=== PATIENT | male | born 1975 | race Caucasian/White ===

== ENCOUNTER 2023-05-09 20:10 | Inpatient (IN) | payer SELFPAY ==
[~2023-05-09] VITALS: Ht 167.6 cm; Wt 115.7 kg
[2023-05-09 20:20] VITALS: BP_SYST 186; BP_SYST 200; BP_DIAS 100; BP_DIAS 90; PULSE 78; RESP 17; TEMP 98.1; O2SAT 96
[2023-05-09] MEDS ORDERED: NACL 0.9% 1,000 ML IV ONE (20:55)
[2023-05-09 21:10] LABS: BASOPHILS # (AUTO) 0.1 K/uL (0.00-0.22); BASOPHILS % (AUTO) 1.1 % (0.0-2.0); EOSINOPHILS # (AUTO) 0.2 K/uL (0-0.4); HEMATOCRIT 43.8 % (36-52); HEMOGLOBIN 15.2 g/dL (12.0-18.0); LYMPHOCYTES # (AUTO) 3.1 K/uL (2.0-11.5); LYMPHOCYTES % (AUTO) 31.7 % (20.5-51.1); MEAN CORPUSCULAR HEMOGLOBIN 34 pg (27-31); MEAN CORPUSCULAR HGB CONC 35 g/dL (33-37); MEAN CORPUSCULAR VOLUME 96.9 fL (80-94); MONOCYTES # (AUTO) 0.8 K/uL (0.8-1.0); MONOCYTES % (AUTO) 7.8 % (1.7-9.3); NEUTROPHILS # (AUTO) 5.5 K/uL (1.8-7.7); NEUTROPHILS % (AUTO) 57.4 % (42.2-75.2); PLATELET COUNT (AUTO) 154 K/uL (140-450); RED BLOOD CELL COUNT(AUTO) 4.52 MIL/uL (4.20-6.10); WHITE BLOOD COUNT (AUTO) 9.7 K/uL (4.8-10.8)
[2023-05-09 21:31] LABS: ALANINE AMINOTRANSFERASE 61 U/L (12-78); ALBUMIN 3.8 g/dL (3.4-5.0); ALKALINE PHOSPHATASE 108 U/L (50-136); ANION GAP 9.7 (8-16); ASPARTATE AMINOTRANSFERASE 59 U/L (15-37); CALCIUM 8.5 mg/dL (8.5-10.1); CARBON DIOXIDE 31.6 mmol/L (21-32); CHLORIDE 101 mmol/L (98-107); CREATININE 0.9 mg/dL (0.6-1.3); FLU A ANTIGEN negative (NEGATIVE); FLU B ANTIGEN negative (NEGATIVE); GFR ARICAN-AMERICAN 116 mL/min (>90); GFR NON ARICAN-AMERICAN 96 mL/min (>90); GLUCOSE 104 mg/dL (74-106); LIPASE 28 U/L (16-77); POTASSIUM 3.3 mmol/L (3.5-5.1); SODIUM SERUM 139 mmol/L (136-145); THYROID STIMULATING HORMONE 3.07 uIU/mL (0.34-3.74); TOTAL BILIRUBIN 1.3 mg/dL (0.0-1.0); TOTAL PROTEIN, SERUM 7.9 g/dL (6.4-8.2); UREA NITROGEN, BLOOD 11 mg/dL (7-18)
[2023-05-09] MEDS ORDERED: ASPIRIN 325 MG TAB PO ONE (21:45)
[2023-05-09] MEDS ORDERED: ATOR10TA PO (21:53)
[2023-05-09] MEDS ORDERED: LOSA-272 PO (21:53)
[2023-05-09] MEDS ORDERED: CARV6.25 PO (21:53)
[2023-05-09] MEDS ORDERED: NITROGLYCERIN 0.4 MG TAB SL PRN (22:25)
[2023-05-09] MEDS ORDERED: hydrALAZINE 20 MG/ML VIAL IVP ONE (22:35)
[2023-05-09] MEDS ORDERED: MORPHINE SULFATE 4 MG/ML SYR IVP ONE (22:35)
[2023-05-09 23:15] VITALS: BP 148/88; PULSE 91; RESP 18; TEMP 98.1; O2SAT 98
[2023-05-10] VITALS (12 sets, daily range): BP systolic 134–166; BP diastolic 64–91; PULSE 65–105; RESP 17–18; TEMP 97.1–98.6; O2SAT 97–98
[2023-05-10] MEDS ORDERED: lisinopriL 5 MG TAB PO ONE (00:30)
[2023-05-10] MEDS ORDERED: POTASSIUM CHLORIDE 10 MEQ TABER PO ONE (00:30)
[2023-05-10] MEDS ORDERED: METOPROLOL 25 MG TAB PO ONE (00:30)
[2023-05-10] MEDS: ACETAMINOPHEN EXTRA STRENGTH 500 MG TAB PO PRN ×2 (05:19→15:36)
[2023-05-10] MEDS ORDERED: DOCUSATE SODIUM 100 MG GELCAP PO PRN (07:50)
[2023-05-10] MEDS ORDERED: ONDANSETRON 4 MG/2 ML VIAL IVP PRN (07:50)
[2023-05-10] MEDS ORDERED: POTASSIUM CHLORIDE 10 MEQ TABER PO PRN (07:50)
[2023-05-10] MEDS ORDERED: LORazepam 2 MG/ML VIAL IVP PRN (07:50)
[2023-05-10] MEDS ORDERED: MAG SULF 2000 MG/WATER PREMIX 50 ML IV PRN (08:00)
[2023-05-10] MEDS: ASPIRIN 81 MG TAB.CHEW PO SCH (08:34)
[2023-05-10] MEDS: METOPROLOL 25 MG TAB PO SCH ×2 (08:34→20:17)
[2023-05-10] MEDS ORDERED: lisinopriL 5 MG TAB PO SCH (09:00)
[2023-05-10] MEDS ORDERED: METOPROLOL 25 MG TAB PO SCH (09:00)
[2023-05-10] MEDS ORDERED: lisinopriL 20 MG TAB PO SCH (09:00)
[2023-05-10] MEDS ORDERED: ATORVASTATIN 20 MG TAB PO SCH (09:00)
[2023-05-10] MEDS: ACETAMINOPHEN 325 MG TAB PO PRN (22:36)
[2023-05-11] VITALS (9 sets, daily range): BP systolic 128–147; BP diastolic 71–91; PULSE 60–78; RESP 17–19; TEMP 96.8–98.2; O2SAT 95–99
[2023-05-11 00:03] LABS: INR 1.24 (0.8-1.2); PARTIAL THROMBOPLASTIN TIME 31.3 secs (22-35.6); PROTHROMBIN TIME 12.9 secs (10.8-13.4)
[2023-05-11] MEDS ORDERED: HEPARIN PER PHARMACY MC PRN (00:10)
[2023-05-11] MEDS: hePARIN / DEXT 5% PREMIX 250 ML IV SCH ×2 (00:55→11:13)
[2023-05-11 07:05] LABS: BASOPHILS # (AUTO) 0.1 K/uL (0.00-0.22); BASOPHILS % (AUTO) 1.4 % (0.0-2.0); EOSINOPHILS # (AUTO) 0.4 K/uL (0-0.4); EOSINOPHILS % (AUTO) 7.1 % (0.0-4.0); HEMOGLOBIN 14.7 g/dL (12.0-18.0); LYMPHOCYTES # (AUTO) 2.4 K/uL (2.0-11.5); LYMPHOCYTES % (AUTO) 41.8 % (20.5-51.1); MEAN CORPUSCULAR HEMOGLOBIN 34 pg (27-31); MEAN CORPUSCULAR HGB CONC 35 g/dL (33-37); MEAN CORPUSCULAR VOLUME 96.6 fL (80-94); MONOCYTES # (AUTO) 0.5 K/uL (0.8-1.0); NEUTROPHILS # (AUTO) 2.4 K/uL (1.8-7.7); NEUTROPHILS % (AUTO) 41.7 % (42.2-75.2); PLATELET COUNT (AUTO) 116 K/uL (140-450); RED BLOOD CELL COUNT(AUTO) 4.34 MIL/uL (4.20-6.10); RED CELL DISTRIBUTION WIDTH 12.4 % (11.6-13.7); WHITE BLOOD COUNT (AUTO) 5.7 K/uL (4.8-10.8)
[2023-05-11 07:06] LABS: ANION GAP 10.7 (8-16); CALCIUM 8.3 mg/dL (8.5-10.1); CARBON DIOXIDE 29.7 mmol/L (21-32); CREATININE 0.7 mg/dL (0.6-1.3); POTASSIUM 3.4 mmol/L (3.5-5.1)
[2023-05-11] MEDS ORDERED: LOSARTAN 50 MG TAB PO SCH (09:00)
[2023-05-11] MEDS ORDERED: SPIRONOLACTONE 25 MG TAB PO SCH (09:00)
[2023-05-11] MEDS: ASPIRIN 81 MG TAB.CHEW PO SCH (10:04)
[2023-05-11] MEDS: carvediloL 6.25 MG TAB PO SCH ×2 (10:04→20:14)
[2023-05-11] MEDS: ACETAMINOPHEN 325 MG TAB PO PRN (13:31)
[2023-05-11] MEDS: LOSARTAN 50 MG TAB PO SCH (20:13)
[2023-05-11] MEDS: MORPHINE SULFATE 2 MG/ML SYR IVP PRN (20:15)
[2023-05-11] MEDS ORDERED: ATORVASTATIN 20 MG TAB PO SCH (21:00)
[2023-05-12 04:00] VITALS: BP 150/65; PULSE 66; RESP 18; TEMP 98.1; O2SAT 99
[2023-05-12 07:09] LABS: BASOPHILS # (AUTO) 0.1 K/uL (0.00-0.22); BASOPHILS % (AUTO) 1.3 % (0.0-2.0); EOSINOPHILS # (AUTO) 0.4 K/uL (0-0.4); EOSINOPHILS % (AUTO) 6.2 % (0.0-4.0); HEMATOCRIT 39.8 % (36-52); HEMOGLOBIN 13.9 g/dL (12.0-18.0); LYMPHOCYTES # (AUTO) 2.2 K/uL (2.0-11.5); LYMPHOCYTES % (AUTO) 36.1 % (20.5-51.1); MEAN CORPUSCULAR HEMOGLOBIN 34 pg (27-31); MEAN CORPUSCULAR HGB CONC 35 g/dL (33-37); MEAN CORPUSCULAR VOLUME 96.5 fL (80-94); MONOCYTES # (AUTO) 0.4 K/uL (0.8-1.0); MONOCYTES % (AUTO) 6.9 % (1.7-9.3); NEUTROPHILS % (AUTO) 49.5 % (42.2-75.2); PLATELET COUNT (AUTO) 127 K/uL (140-450); RED BLOOD CELL COUNT(AUTO) 4.12 MIL/uL (4.20-6.10)
[2023-05-12 07:11] LABS: ANION GAP 11.9 (8-16); CALCIUM 8.5 mg/dL (8.5-10.1); CARBON DIOXIDE 26.8 mmol/L (21-32); CREATININE 0.7 mg/dL (0.6-1.3); POTASSIUM 3.7 mmol/L (3.5-5.1)
[2023-05-12 07:46] LABS: CHOL/HDL RATIO 3.2 (1-4.5)
[2023-05-12 08:00] VITALS: BP 134/77; PULSE 61; RESP 18; TEMP 96.8; O2SAT 97
[2023-05-12] MEDS ORDERED: ATORVASTATIN 20 MG TAB PO SCH (09:00)
[2023-05-12] MEDS: ASPIRIN 81 MG TAB.CHEW PO SCH (09:12)
[2023-05-12] MEDS: LOSARTAN 50 MG TAB PO SCH (09:13)
[2023-05-12] MEDS: carvediloL 6.25 MG TAB PO SCH (09:13)
[2023-05-12] MEDS: MORPHINE SULFATE 2 MG/ML SYR IVP PRN (09:35)
[2023-05-12] MEDS ORDERED: ASPI-1856 PO (11:51)
[2023-05-12] MEDS ORDERED: LOSA50TA57 PO (11:51)
[2023-05-12] MEDS ORDERED: ACET-10509 PO (11:54)
== END 2023-05-12 14:45 | disposition home or self-care (01) | DRG 554 ==
LOC: MED 20:10 → MTU 22:51
PROVIDERS: ADMIT Family Medicine; ATTEND Family Medicine
DX: M87.852 Other osteonecrosis, left femur (principal); E78.00 Pure hypercholesterolemia, unspecified; I10 Essential (primary) hypertension; E87.6 Hypokalemia; R79.89 Other specified abnormal findings of blood chemistry; E78.5 Hyperlipidemia, unspecified; D64.9 Anemia, unspecified
CPT/HCPCS: 36415; 70450; 71045; 73502; 80048; 80053; 83690; 83735; 84443; 84484; 85025; 85610; 85730; 87081; 93005; 96361; 96374; 96375; 99291; J0360; J1644; J2270; J3475